=== PATIENT | female | born 1960 | race Two or more races ===

== ENCOUNTER 2024-09-26 21:05 | Emergency (ER) | payer MEDICAID, OTHER ==
[~2024-09-26] VITALS: Ht 152.4 cm; Wt 45.3 kg
--- NOTE | 2024-09-26 22:38 | DVH ---
EXAM: XY L FOREARM XRAY HISTORY: LEFT FOREARM PAIN S/P DOG BITE COMPARISON: None TECHNIQUE: AP and lateral views of the left forearm were performed. Bones are osteopenic otherwise unremarkable. No evidence for fracture involving the bones and there i s no evidence for tooth burgos or foreign bodies. There is a large laceration involving the lateral aspect of the proximal forearm. IMPRESSION: 1. Osteopenia and soft tissue injury
--- NOTE | 2024-09-26 22:40 | DVH ---
EXAM: XY L ELBOW 3 VIEW XRAY HISTORY: LEFT ELBOW PAIN S/P DOG BITE COMPARISON: None TECHNIQUE: Three views of the left elbow were performed. FINDINGS: No acute fracture or effusion are identified about the left elbow. No significant degenerat mellissa changes. IMPRESSION: No acute fracture of the left elbow.
[2024-09-27 00:02] VITALS: BP 120/87; TEMP 98.7
[2024-09-27] MEDS ORDERED: AMOX875T4 PO (00:36)
[2024-09-27] MEDS ORDERED: ACET500T58 PO (00:36)
--- NOTE | 2024-09-27 00:36 | ED.PDOC ---
History of Present Illness(SKN HPI Comments 64-year-old female presents to ER with complaints of laceration to left forearm x1 day. Patient reports that she was bit by her cane norberto dog who is fully up-to-date on vaccinations on her left forearm at 8 p.m. prior to arrival to ER and sustained laceration to left forearm and abrasions to left elbow at that time.. She rates her current pain a 10/10 to left forearm with radiation towards the left elbow. Denies use of medications for current symptoms and states she is unsure when her last tetanus shot was. Denies foreign body sensation or any further symptoms/comply Chief Complaint: Animal Bite Time Seen by MD: 22:05 Primary Care Provider: UNKNOWN History of Present Illness: Nurses Notes, Medications, Allergies Allergies: Coded Allergies: NO KNOWN ALLERGIES (Unverified , 09/26/24) Home Meds Active Scripts Amoxicillin & Pot Clavulanate (Amoxicillin/Potassium Cla) 875 Mg Tab, 1 TAB PO BID for 7 Days, #14 TAB 0 Refills Prov:BEVERLY ARBOLEDA 09/27/24 Acetaminophen (Acetaminophen) 500 Mg Tab, 500 MG PO Q4HPRN, #30 TAB 0 Refills Prov:BEVERLY ARBOLEDA 09/27/24 Information Source: Patient Mode of Arrival: Ambulatory Immunization Status of Animal: Current Tetanus: Unknown Past Medical History PAST MEDICAL HISTORY: Denies Surgical History: Denies all surgeries Family History Family History: Unknown Social History Smoker: Non-Smoker Alcohol: Denies ETOH Use Drugs: Denies Drug Use Lives In: Home Constitutional: denies: chills, diaphoresis, fatigue, fever, malaise, sweats, weakness, others EENTM: denies: blurred vision, double vision, ear bleeding, ear discharge, ear drainage, ear pain, ear ringing, eye pain, eye redness, hearing loss, mouth pain, mouth swelling, nasal discharge, nose bleeding, nose congestion, nose pain, photophobia, tearing, throat pain, throat swelling, voice changes, others Respiratory: denies: cough, hemoptysis, orthopnea, SOB at rest, shortness of breath, SOB with excertion, stridor, wheezing, others Cardiovascular: denies: chest pain, dizzy spells, diaphoresis, Dyspnea on exertion, edema, irregular heart beat, left arm pain, lightheadedness, palpitations, PND, syncope, others Gastrointestinal: denies: abdomen distended, abdominal pain, blood streaked bowels, constipated, diarrhea, dysphagia, difficulty swallowing, hematemesis, melena, nausea, poor appetite, poor fluid intake, rectal bleeding, rectal pain, vomiting, others Genitourinary: denies: abnormal vagina bleeding, burning, dyspareunia, dysuria, flank pain, frequency, hematuria, incontinence, pain, , vagina discharge, urgency, others Neurological: denies: dizziness, fainting, headache, left sided numbness, left sided weakness, numbness, paresthesia, pre-existing deficit, right sided numbness, right sided weakness, seizure, speech problems, tingling, tremors, weakness, others Musculoskeletal: reports: others ( STATED IN HPI) Integumetry: reports: others ( STATED IN HPI) Allergic/Immunocompromised: denies: Difficulty Healing, Frequent Infections, Hives, Itching, others Hematologic/Lymphatic: denies: anemia, blood clots, easy bleeding, easy bruising, swollen glands, others Endocrine: denies: excessive hunger, excessive sweating, excessive thirst, excessive urination, flushing, intolerance to cold, intolerance to heat, unexplained weight gain, unexplained weight loss, others Psychiatric: denies: anxiety, bipolar disorder, depression, hopeless, panic disorder, schizophrenia, sleepless, suicidal, others Physical Exam General Appearance: No Apparent Distress HEENT: PERRL/EOMI Neck: Full Range of Motion, Non-Tender, Normal Respiratory: Chest Non-Tender, Lungs Clear, No Accessory Muscle Use, No Respiratory Distress, Normal Breath Sounds Cardiovascular: No Murmur, No Gallop, Regular Rate/Rhythm Breast Exam: Deferred Gastrointestinal: NOT DONE Genitalia: Deferred Pelvic: Deferred Rectal: Deferred Extremities: No calf tenderness, Normal capillary refill, Normal range of motion 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 Was a procedure done?: Yes Sedation Sedation?: No Laceration Repair : Location LEFT FOREARM Length 7 CM Anesthetic: Lidocaine (1%), Without epi Laceration Repair Prep: Saline, Betadine, by Irrigation (WITHOUT SIGNS OF FOREIGN BODY) Laceration Repair Wound Comple: epidermis/dermis repair Laceration Repair: Number of sutures (FIVE SUTURES PLACED-LOOSELY APPROXIMATED, PATIENT TOLERATED WELL WITHOUT ANY COMPLICATION), Size (4-0), Nylon, Simple, Non-adherent gauze Informed consent obtained: Yes Risks, benefits, and alternati: Yes Images 1 - 7 CM LACERATION TO LEFT FOREARM AND TWO 1 CM ABRASIONS TO LEFT ELBOW NOTED. SLIGHT TTP/ERYTHEMA/SWELLING LOCALIZED TO WOUND EDGES. NO FOREIGN BODY/FURTHER SKIN CHANGES NOTED. PATIENT ABLE TO FULLY MOVE THE LEFT ELBOW WITHOUT DIFFICULTY. PULSES INTACT. 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 INTACT AND EQUAL BILATERALLY Differential Diagnosis (INTG) Differential Diagnosis: Abrasion Differential Diagnosis: Neurovascular Injury Differential Diagnosis: Open Fracture, Retained Foreign Body X-Ray, Labs, Meds, VS Vital Signs Date Time Temp Pulse Resp B/P (MAP) Pulse Ox O2 Delivery O2 Flow Rate FiO2 09/27/24 00:37 91 16 100 Room Air 09/27/24 00:02 98.7 91 16 120/87 (98) 100 98.7 09/26/24 21:43 98.0 96 18 133/98 (110) 96 PATIENT: OBINNA HUMPHREYSCCT: [id number]: [id number] : 1960 LOC: ER ROOM / BED: / AGE / SEX: 64 / F ADM STATUS: REG ER SERVICE 04 ORDERING PHYSICIAN: BEVERLY ARBOLEDA PROCEDURE(s): LFOR - L FOREARM XRAY REASON: LEFT FOREARM PAIN S/P DOG BITE ORDER NUMBER(s): [id number], ACCESSION NUMBER(s): [id number] EXAM: XY L FOREARM XRAY HISTORY: LEFT FOREARM PAIN S/P DOG BITE COMPARISON: None TECHNIQUE: AP and lateral views of the left forearm were performed. Bones are osteopenic otherwise unremarkable. No evidence for fracture involving the bones and there is no evidence for tooth burgos or foreign bodies. There is a large laceration involving the lateral aspect of the proximal forearm. IMPRESSION: 1. Osteopenia and soft tissue injury ATED BY: RORY ALTAMIRANO MD DICTATED DATE/TIME: 09/26/242234 SIGNED BY: RORY ALTAMIRANO MD SIGNED DATE/TIME: 09/26/242234 CC: PATIENT: CASSY HUMPHREYS ACCT: [id number] UNIT: [id number] : 1960 LOC: ER ROOM / BED: / AGE / SEX: 64 / F ADM STATUS: REG ER SERVICE 04 ORDERING PHYSICIAN: BEVERLY ARBOLEDA PROCEDURE(s): LELB3 - L ELBOW 3 VIEW XRAY REASON: LEFT ELBOW PAIN S/P DOG BITE ORDER NUMBER(s): [id number], ACCESSION NUMBER(s): [id number] EXAM: XY L ELBOW 3 VIEW XRAY HISTORY: LEFT ELBOW PAIN S/P DOG BITE COMPARISON: None TECHNIQUE: Three views of the left elbow were performed. FINDINGS: No acute fracture or effusion are identified about the left elbow. No significant degenerative changes. IMPRESSION: No acute fracture of the left elbow. ATED BY: JONNIE LAIRD DO DICTATED DATE/TIME: 09/26/242237 SIGNED BY: JONNIE LAIRD DO SIGNED DATE/TIME: 09/26/242237 CC: LEFT FOREARM AND LEFT ELBOW X-RAY REVIEWED ROCEPHIN 1 G IM ORDERED TDAP 0.5 ML IM ORDERED WOUND CLEANING PERFORMED AT BEDSIDE WOUND CARE/CLEANING DISCUSSED AND ADVISED ADVISED ON REST/NO STRENUOUS ACTIVITY AND ELEVATION PATIENT NEUROVASCULARLY INTACT AND REPORTED IMPROVEMENT IN SYMPTOMS PRIOR TO DISCHARGE ADVISED TO FOLLOW UP IN TWO DAYS FOR WOUND CHECK ADVISED TO FOLLOW UP IN 10-14 DAYS FOR REMOVAL OF SUTURES ADVISED TO FOLLOW UP WITH PCP IN 1-2 DAYS PATIENT VERBALIZED UNDERSTANDING AND AGREEABLE WITH CURRENT PLAN OF CARE ADVISED TO RETURN TO ER IMMEDIATELY IF SYMPTOMS WORSEN Images Reviewed?: Images reviewed and evaluated by me Time of 1ST Reevaluation: 00:12 Reevaluation 1ST: N/A Patient Education/Counseling: Diagnosis, Treatment, Prognosis, Need For Follow Up Family Education/Counseling: No Family Present Departure 1 Departure Time of Disposition: 00:34 Impression: Primary Impression: Dog bite of left forearm Qualified Codes: S51.852A - Open bite of left forearm, initial encounter; W54.0XXA - Bitten by dog, initial encounter Additional Impression: Laceration of forearm Qualified Codes: S51.812A - Laceration without foreign body of left forearm, initial encounter Disposition: HOME / SELF CARE / HOMELESS Condition: Stable e-Prescriptions Amoxicillin & Pot Clavulanate (Amoxicillin/Potassium Cla) 875 Mg Tab 1 TAB PO BID for 7 Days, #14 TAB 0 Refills Prov: BEVERLY ARBOLEDA 09/27/24 Acetaminophen (Acetaminophen) 500 Mg Tab 500 MG PO Q4HPRN, #30 TAB 0 Refills Prov: BEVERLY ARBOLEDA 09/27/24 Discharged With: Friend Critical Care Note Critical Care Time?: No Stability Stability form required: No Heart Score Heart Score: Heart Score Response (Comments) Value History N/A 0 EKG N/A 0 Age N/A 0 Risk Factors N/A 0 Troponin N/A 0 Total 0 BEVERLY ARBOLEDA Sep 27, 2024 00:36
[2024-09-27 00:37] VITALS: PULSE 91; RESP 16; O2SAT 100
[2024-09-27] MEDS: cefTRIAXone SOD 1,000 MG VL IM ONE (01:04)
[2024-09-27] MEDS: TETANUS-DIPTH-ACEL PERTUSSIS 0.5ML SYR Tdap IM ONE (01:05)
== END 2024-09-27 01:25 | disposition home or self-care (01) ==
LOC: ER 21:05
DX: S51.812A Laceration without foreign body of left forearm, initial encounter (principal); S51.852A Open bite of left forearm, initial encounter; Z79.2 Long term (current) use of antibiotics; Z79.1 Long term (current) use of non-steroidal anti-inflammatories (NSAID); W54.0XXA Bitten by dog, initial encounter; Y93.89 Activity, other specified; Y92.89 Other specified places as the place of occurrence of the external cause; Y99.8 Other external cause status
CPT/HCPCS: 12002; 73080; 73090; 90471; 90715; 96372; 99284; J0696; J2003